=== PATIENT | male | born 1990 | race Caucasian/White ===

== ENCOUNTER 2023-06-12 12:35 | Outpatient (CLI) | payer OTHER ==
--- NOTE | 2023-06-12 20:56 | MRI Report ---
PROCEDURE: SHOULDER WO - RT INDICATIONS: PAIN IN RIGHT SHOULDER TECHNIQUE: Noncontrast oblique coronal T2 fast spin echo with fat saturation, oblique sagittal T1 spin echo and T2 fast spin echo with fat saturation, axial T1 spin echo and T2 fast spin echo with fat saturation t hrough the shoulder. COMPARISON: None. FINDINGS: Image quality: Excellent. Rotator cuff: Low-grade bursal surface partial-thickness tear involving distal supraspinatus at its i nsertion on humeral head is seen extending to musculotendinous junction. Distal infraspinatus tendino sis is noted distal subscapularis tendinosis is also seen. No full-thickness rotator cuff tendon rupt ure. No rotator cuff muscle atrophy on sagittal images. Bones and bursae: No bone marrow contusions or fractures. No acromioclavicular joint degeneration. The acromion demonstrates conventional anatomy, without an os acromiale. No pathologic subacromial/ subdeltoid bursal fluid is present. Capsule and soft tissues: There is signal abnormality involving superior anterior labrum at 1 to 2:00 position suggestive of subtle superior anterior labral tear. Similar is signal abnormality involving inferior posterior labrum at 6 to 7:00 position is also seen. The long head of the biceps tendon is thickened. The rotator interval appears normal, without fibrosis. The coracohumeral ligament is norm al in thickness. IMPRESSION: 1. Low-grade bursal surface partial-thickness tear involving distal supraspinatus extending to muscul otendinous junction. Distal infraspinatus and subscapularis tendinosis. No full-thickness rotator cuf f tendon rupture. 2. No marrow edema. No fracture or dislocation. No significant joint effusion. 3. Suggestion of subtle superior anterior labral tear at 1 to 2:00 position and inferior posterior la bral tear at 6 to 7:00 position. 4. Proximal long head of biceps tendinosis. Reviewed by: Markell Ordoñez MD on 06/12/2023 8:54 PM PDT Approved by: Markell Ordoñez MD on 06/12/2023 8:54 PM PDT Station ID: [id number]
== END 2023-06-12 12:36 | disposition home or self-care (01) ==
LOC: DI 12:35
PROVIDERS: ATTEND Preventive Medicine Aerospace Medicine
DX: M75.111 Incomplete rotator cuff tear or rupture of right shoulder, not specified as traumatic (principal); M67.921 Unspecified disorder of synovium and tendon, right upper arm

== ENCOUNTER 2023-06-12 12:35 | Outpatient (CLI) | payer OTHER ==
--- NOTE | 2023-06-12 17:01 | MRI Report ---
PROCEDURE: LUMBAR SPINE WO INDICATIONS: LOW BACK PAIN TECHNIQUE: Noncontrast sagittal T1 spin echo and T2 fast echo, sagittal STIR, axial T1 and T2 fast spin echo thr ough the lumbar spine. In cases with scoliosis, additional coronal T2 fast spin echo may be performe d. COMPARISON: None. FINDINGS: Image quality: Excellent. Alignment and Curvature: Straightening of normal lumbar lordosis. Bone Marrow: Marrow is of normal o verall signal. No acute vertebral body compression fractures. Spinal Cord: Conus medullaris terminates at the T12-L1 level. Visualized cord demonstrates normal s ignal and size. Paraspinous Soft Tissues: No paravertebral masses. T12-L1: Mild facet arthropathy. No central canal or neuroforaminal stenosis. L1-L2: Mild facet arthropathy. No central canal or neuroforaminal stenosis. L2-L3: Mild facet arthropathy. No central canal or neuroforaminal stenosis. L3-L4: Mild facet arthropathy. No central canal or neuroforaminal stenosis. L4-L5: Small diffuse disc bulge with superimposed small posterior disc extrusion. Facet arthropathy . No central canal stenosis. No neuroforaminal stenosis. L5-S1: Severe disc desiccation and height loss with a central disc protrusion and annular tear. No central canal or neuroforaminal stenosis. IMPRESSION: Degenerative disease at L4-L5 and L5-S1 as described above. No significant central canal or neurofora jared stenosis. Reviewed by: Daniel Hermosillo MD on 06/12/2023 4:59 PM PDT Approved by: Daniel Hermosillo MD on 06/12/2023 4:59 PM PDT Station ID: [id number]
== END 2023-06-12 12:36 | disposition home or self-care (01) ==
LOC: DI 12:35
PROVIDERS: ATTEND Preventive Medicine Aerospace Medicine
DX: M51.27 Other intervertebral disc displacement, lumbosacral region (principal); M51.26 Other intervertebral disc displacement, lumbar region; M47.816 Spondylosis without myelopathy or radiculopathy, lumbar region; M51.36 Other intervertebral disc degeneration, lumbar region; M51.37 Other intervertebral disc degeneration, lumbosacral region; M75.111 Incomplete rotator cuff tear or rupture of right shoulder, not specified as traumatic; M67.921 Unspecified disorder of synovium and tendon, right upper arm

== ENCOUNTER 2023-08-13 19:37 | Emergency (ER) | payer OTHER ==
[2023-08-13 19:58] LABS: BASOPHILS # (AUTO) 0.1 10^3/uL (0.0-0.1); BASOPHILS % (AUTO) 0.6 %; EOSINOPHILS # (AUTO) 0.1 10^3/uL (0.0-0.7); EOSINOPHILS % (AUTO) 0.9 %; HCT - HEMATOCRIT 40.4 % (42.0-52.0); HGB - HEMOGLOBIN 13.4 g/dL (14.0-18.0); LYMPHOCYTES # (AUTO) 1.8 10^3/uL (1.5-3.5); LYMPHOCYTES % (AUTO) 21.5 %; MEAN CORPUSCULAR HEMOGLOBIN 29.9 pg (27.0-31.0); MEAN CORPUSCULAR HGB CONC 33.2 g/dL (32.0-36.0); MEAN CORPUSCULAR VOLUME 90.2 fL (80.0-94.0); MEAN PLATELET VOLUME 8.9 fL (7.4-11.4); MONOCYTES # (AUTO) 0.7 10^3/uL (0.0-1.0); MONOCYTES % (AUTO) 7.8 %; NEUTROPHILS # (AUTO) 5.8 10^3/uL (1.5-6.6); NEUTROPHILS % (AUTO) 68.8 %; PLT - PLATELET COUNT 323 10^3/uL (130-450); RED BLOOD COUNT 4.48 10^6/uL (4.70-6.10); RED CELL DISTRIBUTION WIDTH 12.8 % (12.0-15.0); WHITE BLOOD COUNT 8.4 x10^3/uL (4.8-10.8)
[2023-08-13 20:13] LABS: ALBUMIN 4.3 g/dL (3.2-5.5); ALBUMIN/GLOBULIN RATIO 1.6 (1.0-2.2); BILIRUBIN,TOTAL 0.3 mg/dL (0.2-1.0); CALCIUM 9.5 mg/dL (8.5-10.3); POTASSIUM 3.8 mmol/L (3.5-4.5)
[2023-08-13 20:19] LABS: TROPONIN I HIGH SENSITIVITY 2.4 ng/L (2.3-19.7)
--- NOTE | 2023-08-13 20:33 | XRAY Report ---
PROCEDURE: Chest 1 View X-Ray INDICATIONS: Chest Pain TECHNIQUE: One view of the chest was acquired. COMPARISON: None. FINDINGS: Surgical changes and devices: None. Lungs and pleura: No pleural effusions or pneumothorax. Lungs are clear. Mediastinum: Mediastinal contours appear normal. Heart size is normal. Bones and chest wall: No suspicious bony lesions. Overlying soft tissues appear unremarkable. IMPRESSION: No acute cardiopulmonary process. Reviewed by: Markell Ordoñez MD on 08/13/2023 8:32 PM PDT Approved by: Markell Ordoñez MD on 08/13/2023 8:32 PM PDT Station ID: [id number]
--- NOTE | 2023-08-14 02:00 | ED Physician Documentation ---
PD HPI CHEST PAIN - Stated complaint Stated Complaint: CHEST PX - Chief complaint Chief Complaint: Cardiac - History obtained from History obtained from: Patient - Additional information Additional information: HPI from patient. Patient c/o chest pain, substernal radiating across anterior chest bilaterally from center, down to epigastrium and up to throat, and to back. Onset approximately 5 PM today while at home at rest. Pain has been episodic without apparent inciting, or ameliorating factors. Pain is worse with lying supine. Pain is 5/10 at maximum. Denies h/o similar symptoms. Denies dyspnea, n/v, diaphoresis. No leg swelling, no pleuritic component. Review of Systems Cardiac: reports: Chest pain / pressure. denies: Palpitations, Pedal edema, Nba f pain Respiratory: reports: Reviewed and negative GI: reports: Reviewed and negative Musculoskeletal: denies: Extremity swelling PD PAST MEDICAL HISTORY - Past Medical History Past Medical History: Yes - Present Medications Home Medications: Ambulatory Orders Medication Instructions Recorded Confirmed Lisdexamfetamine Dimesylate 20 mg ORAL DAILY 08/13/23 08/13/23 [Vyvanse] buPROPion HCL [Wellbutrin Xl] 300 mg PO DAILY 08/13/23 08/13/23 - Allergies Allergies/Adverse Reactions: Allergies Allergy/AdvReac Type Severity Reaction Status Date / Time No Known Drug Allergies Allergy Verified 08/13/23 19:44 - Living Situation Living Arrangement: reports: At home PD ED PE NORMAL - Vitals Vital signs reviewed: Yes - General General: Alert and oriented X 3, No acute distress, Well developed/nourished - Cardiac Cardiac: RRR, No murmur, No gallop, No rub - Respiratory Respiratory: No respiratory distress, Clear bilaterally - Abdomen Abdomen: Soft, Non tender - Extremities Extremities: No edema Results - Vitals Vitals: Oxygen O2 Source Room air - EKG (time done) No standard instances EKG releavant findings:: EKG personally interpreted by author of this note. Relevant findings are: Rate: Rate (enter#) (82) Rhythm: NSR [place]: Normal Intervals: Normal NE QRS: Normal Ischemia: Normal ST segments - Labs Labs: Laboratory Tests 08/13/23 08/13/23 08/14/23 19:53 19:53 00:08 WBC 8.4 RBC 4.48 L Hgb 13.4 L Hct 40.4 L MCV 90.2 MCH 29.9 MCHC 33.2 RDW 12.8 Plt Count 323 MPV 8.9 Neut # (Auto) 5.8 Lymph # (Auto) 1.8 Sumner # (Auto) 0.7 Eos # (Auto) 0.1 Baso # (Auto) 0.1 Absolute Nucleated RBC 0.00 Nucleated RBC % 0.0 Sodium 141 Potassium 3.8 Chloride 105 Carbon Dioxide 30 Anion Gap 6.0 BUN 18 Creatinine 1.0 Estimated GFR (MDRD) 87 L Glucose 85 Calcium 9.5 Total Bilirubin 0.3 AST 16 ALT 25 Alkaline Phosphatase 75 Troponin I High Sens 2.4 < 2.3 L Total Protein 7.0 Albumin 4.3 Globulin 2.7 Albumin/Globulin Ratio 1.6 Lipase 42 - Rads (name of study) chest xray Relevant Findings:: Prelim report reviewed, See rad report PD Medical Decision Making - ED course Complexity details: reviewed results, re-evaluated patient, considered differential, d/w patient ED course: No concerning nor diagnostic findings on blood tests (including hs-cTn 2.3), EKG, CXR. PERC negative. No cardiac risk factors. Etiology of patient's symptoms is not apparent, but further emergent testing not indicated at this time. Results d/w patient, return precautions reviewed, advised to follow up with PCP for reevaluation. Departure - Departure Disposition: 01 Home, Self Care Clinical Impression: Chest pain Qualifiers: Chest pain type: unspecified Qualified Code(s): R07.9 - Chest pain, unspecified Condition: Good Instructions: ED Chest Pain Atypical Unkn Cause Comments: There were no concerning nor diagnostic findings on tonight's tests, including the blood test, chest x-ray, EKG. The blood tests included a cardiac enzyme test that was within the normal range and this was repeated a few hours later and the second result was again normal. These are all reassuring results but the cause of your pain remains unclear at this time. Further testing, if necessary, can take place in the outpatient setting. Certainly, if your symptoms worsen in any way, or if you develop new/concerning signs/symptoms (such as fever, shortness of breath,), you can always return to the emergency department for reevaluation. Otherwise, contact your primary care provider in the morning to arrange for next available appointment for reevaluation even if you are not having symptoms. Forms: PCP List Discharge Date/Time: 08/14/23 02:45
[2023-08-14 02:31] VITALS: BP 120/85; O2SAT 98
== END 2023-08-14 02:45 | disposition home or self-care (01) ==
LOC: ED 19:37
DX: R07.9 Chest pain, unspecified (principal)
CPT/HCPCS: 36415; 80053; 83690; 84484; 85025; 93005; 99283; 99284